=== PATIENT | male | born 1995 | race Two or more races ===

== ENCOUNTER → 2022-09-03 08:35 | Outpatient (BNVA) | payer OTHER, SELFPAY | PROVIDERS: Visit Provider Nurse Practitioner Family | DX: Z13.89 Encounter for screening for other disorder (principal) ==

== ENCOUNTER 2023-01-12 10:39 | Outpatient (REF) | payer OTHER, SELFPAY | END 2023-01-12 10:40 | disposition home or self-care (01) | LOC: HO.NEURO 10:39 | PROVIDERS: Visit Provider Nurse Practitioner Family | DX: Z13.89 Encounter for screening for other disorder (principal) ==